=== PATIENT | male | born 1955 | race Caucasian/White ===

== ENCOUNTER → 2017-08-28 | Outpatient (CLI) | payer BC ==
[2017-08-28 07:52] LABS: ALBUMIN 4.1 GM/DL (3.2-5.2); ALBUMIN/GLOBULIN RATIO 1.37 (1.00-1.93); ALKALINE PHOSPHATASE 71 U/L (45-117); ALT/SGPT 23 U/L (12-78); ANION GAP 10 MEQ/L (8-16); AST/SGOT 17 U/L (7-37); BILIRUBIN,TOTAL 0.6 MG/DL (0.2-1.0); BLOOD UREA NITROGEN 18 MG/DL (7-18); CALCIUM LEVEL 8.7 MG/DL (8.8-10.2); CARBON DIOXIDE LEVEL 28 MEQ/L (21-32); CHLORIDE LEVEL 104 MEQ/L (98-107); CHOLESTEROL LEVEL 175 MG/DL (<200); CHOLESTEROL RISK RATIO 2.651 (<5); CREATININE FOR GFR 0.82 MG/DL (0.70-1.30); GLOMERULAR FILTRATION RATE > 60.0 (>49); GLUCOSE, FASTING 100 MG/DL (70-100); HDL CHOLESTEROL 66 MG/DL (>40); LDL CHOLESTEROL 90.4 MG/DL (<100); NON-HDL-C 109 MG/DL; POTASSIUM SERUM 4.2 MEQ/L (3.5-5.1); PSA SCREENING 0.43 NG/ML (< 4.0); SODIUM LEVEL 142 MEQ/L (136-145); TOTAL PROTEIN 7.1 GM/DL (6.4-8.2); TRIGLYCERIDES LEVEL 93 MG/DL (<150)
== END ==
LOC: M LAB 06:09
DX: I10 Essential (primary) hypertension (principal); E78.2 Mixed hyperlipidemia; Z12.5 Encounter for screening for malignant neoplasm of prostate

== ENCOUNTER → 2019-09-25 | Outpatient (REF) | payer OTHER ==
[2019-09-25 13:42] LABS: ALBUMIN 4.1 GM/DL (3.2-5.2); ALT/SGPT 34 U/L (12-78); BILIRUBIN,TOTAL 0.6 MG/DL (0.2-1.0); BLOOD UREA NITROGEN 20 MG/DL (7-18); CALCIUM LEVEL 9.1 MG/DL (8.8-10.2); CARBON DIOXIDE LEVEL 29 MEQ/L (21-32); CHLORIDE LEVEL 104 MEQ/L (98-107); CHOLESTEROL LEVEL 194 MG/DL (<200); CHOLESTEROL RISK RATIO 2.939 (<5); CREATININE FOR GFR 0.99 MG/DL (0.70-1.30); GLOMERULAR FILTRATION RATE > 60.0 (>49); GLUCOSE, FASTING 110 MG/DL (70-100); HDL CHOLESTEROL 66 MG/DL (>40); LDL CHOLESTEROL 109 MG/DL (<100); NON-HDL-C 128 MG/DL; POTASSIUM SERUM 3.8 MEQ/L (3.5-5.1); SODIUM LEVEL 138 MEQ/L (136-145); TOTAL PROTEIN 7.6 GM/DL (6.4-8.2); TRIGLYCERIDES LEVEL 93 MG/DL (<150)
== END ==
LOC: M SFHCADAM 08:48
PROVIDERS: ATTEND Physician Assistant
DX: E78.2 Mixed hyperlipidemia (principal); I10 Essential (primary) hypertension

== ENCOUNTER 2023-10-21 09:33 | Day surgery (SDC) | payer MEDICARE, OTHER ==
[~2023-10-21] VITALS: Ht 177.8 cm; Wt 88.0 kg
[2023-10-21] MEDS: NS 1,000 ML IV ONE (06:00)
[~2023-10-21 09:33] MED LIST: ALBU8.5H; AMLO1TAB24 PO; ERGO500029 PO; HYDR12CA PO; HYDR200T46 PO; IBUP-354 PO; LISI20TA33 PO; METO1TAB87 PO; POTA-136 PO; ROSU20TA61 PO; SULF500T41 PO; TREL1AER INH
[2023-10-21] MEDS ORDERED: fentaNYL 100 MCG/2 ML INJECTION As Ordered ONE (11:26)
[2023-10-21 12:01] VITALS: TEMP 97.3
[2023-10-21] MEDS ORDERED: LIDOCAINE 2% 100MG/5ML SDV (FOR ANES.) As Ordered ONE (12:04)
[2023-10-21] MEDS ORDERED: propofoL 200 MG/20 ML VIAL As Ordered ONE (12:04)
[2023-10-21 12:18] VITALS: BP 122/80; O2SAT 94
== END 2023-10-21 12:29 | disposition home or self-care (01) ==
LOC: M OPP 09:33
PROVIDERS: ATTEND Internal Medicine Gastroenterology
DX: D12.6 Benign neoplasm of colon, unspecified (principal); K64.8 Other hemorrhoids; K57.30 Diverticulosis of large intestine without perforation or abscess without bleeding; R19.5 Other fecal abnormalities; R12 Heartburn; Z86.74 Personal history of sudden cardiac arrest; Z87.891 Personal history of nicotine dependence; J44.9 Chronic obstructive pulmonary disease, unspecified; I10 Essential (primary) hypertension; Z79.02 Long term (current) use of antithrombotics/antiplatelets; Z79.1 Long term (current) use of non-steroidal anti-inflammatories (NSAID); Z79.51 Long term (current) use of inhaled steroids
CPT/HCPCS: 43239; 45385; 88305; J3010

== ENCOUNTER → 2024-10-07 | Outpatient (CLI) | payer MEDICARE ==
[~2024-10-07] MED LIST changes: +ISOVUE-370 76% 100ML VIAL ONE; -ROSU20TA61 PO; +ROSU20TA86 PO
== END ==
LOC: M PLAIMG 14:30
PROVIDERS: ATTEND Nurse Practitioner Family
DX: R10.9 Unspecified abdominal pain (principal)
CPT/HCPCS: 74170; Q9967

== ENCOUNTER → 2025-06-09 | Outpatient (REF) | payer MEDICARE ==
[~2025-06-09] MED LIST changes: +HYDR12.510 PO; -HYDR12CA PO; -ISOVUE-370 76% 100ML VIAL ONE
== END ==
LOC: M LAB REF 10:34
PROVIDERS: ATTEND Nurse Practitioner Family
DX: K52.832 Lymphocytic colitis (principal); R19.7 Diarrhea, unspecified